=== PATIENT | male | born 1980 | race Caucasian/White ===

== ENCOUNTER → 2016-10-07 | Outpatient (CLI) | payer OTHER ==
[~2016-10-07] MED LIST: GADOBUTROL 10 ML VIAL IVP ONE
--- NOTE | 2016-10-07 11:31 | MR ---
MRI of the Cervical Spine Without and With Contrast Clinical Indication: Reported history of abnormal brain MRI, hyperreflexia. Possible MS. Comparison: None available. Technique: Sagittal T1, T2, and STIR, axial T1 and T2 unenhanced, and sagittal and axial T1 enhanced images were obtained. 7.5 mL Gadavist were administered intravenously without complication. Findings: The craniocervical junction is normal. There is trace retrolisthesis of C4 on C5 and C5 on C6. The cervical neural canal is congenitally normal in size. Vertebral bodies maintain normal bone m arrow signal. Disk spaces maintain normal height and hydration. The spinal cord has normal caliber a nd signal intensity. No enhancing lesions are identified. C2-C3: Minimal uncovertebral spondylosis with no significant spinal canal narrowing or neural foramin al stenosis. C3-C4: Normal. C4-C5: Minimal vertebral and uncovertebral spondylosis with a mild annular bulge and a small focal ce ntral disk protrusion, with mild spinal canal narrowing and no significant neural foraminal stenosis. C5-C6: Mild vertebral and uncovertebral spondylosis with minimal spinal canal narrowing and no signif icant neural foraminal stenosis. C6-C7: Mild uncovertebral spondylosis with no significant spinal canal narrowing or neural foraminal stenosis. C7-T1: No significant spinal canal narrowing or neural foraminal stenosis. Impression: 1. No MR evidence of multiple sclerosis in the cervical spine. 2. Mild degenerative change, most prominent at C4-C5, with mild spinal canal narrowing and no signifi cant neural foraminal stenosis.
== END ==
LOC: FIMAGING 08:54
PROVIDERS: ATTEND Psychiatry & Neurology Neurology
DX: R90.89 Other abnormal findings on diagnostic imaging of central nervous system (principal); G37.9 Demyelinating disease of central nervous system, unspecified; R29.2 Abnormal reflex
CPT/HCPCS: A9585